=== PATIENT | male | born 1965 | race Caucasian/White ===

== ENCOUNTER 2016-11-19 18:16 | Emergency (ER) | payer OTHER ==
[~2016-11-19] VITALS: Ht 165.1 cm; Wt 68.2 kg
[2016-11-19 18:26] VITALS: Ht 165.1 cm; Wt 68.2 kg
--- NOTE | 2016-11-19 20:00 | RADRPT ---
PROCEDURE: XR Knee. CLINICAL INDICATION: Fall, pain TECHNIQUE: 3 views of the left knee are available for review. COMPARISON: None available FINDINGS: Osteopenia is noted. No acute fracture or dislocation is identified. There is no radiodense foreig n body. Alignment is anatomic. IMPRESSION: 1. Osteopenia. 2. No acute fracture or dislocation is seen. RPTAT: HDWR .Hiren Vanegas MD, MD Date Time Electronically viewed and signed by .Hiren Vanegas MD, on 11/19/2016 20:00 .R/
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
== END 2016-11-19 20:11 | disposition home or self-care (01) ==
LOC: FTE 18:16
DX: M25.562 Pain in left knee (principal); F17.210 Nicotine dependence, cigarettes, uncomplicated; Z04.3 Encounter for examination and observation following other accident
CPT/HCPCS: 73562

== ENCOUNTER 2017-01-29 14:29 | Inpatient (IN) | payer OTHER ==
[~2017-01-29] VITALS: Ht 165.1 cm; Wt 63.2 kg
[2017-01-29] MEDS ORDERED: SODIUM CHLORIDE 0.9% 1L BAG IV* STA (15:09)
[2017-01-29] MEDS ORDERED: PIPER-TAZO 3.375 GM IV (PMX) 100 ML IVPB STA (15:09)
[2017-01-29] MEDS ORDERED: OXYC80TA39 PO (15:17)
[2017-01-29] MEDS ORDERED: DULO60CA6 PO (15:17)
[2017-01-29] MEDS ORDERED: PREG300C PO (15:17)
[2017-01-29] MEDS ORDERED: CARB100T2 PO (15:18)
[2017-01-29] MEDS ORDERED: ACETAMINOPHEN 325 MG TAB PO ONE (15:30)
[2017-01-29 15:44] LABS: ABNORMAL IP MESSAGE 1; HEMATOCRIT 38.4 % (42.0-52.0); HEMOGLOBIN 13.1 g/dl (14.0-18.0); MEAN CORPUSCULAR HEMOGLOBIN 30.8 pg (29.0-33.0); MEAN CORPUSCULAR HGB CONC 34.1 g/dl (32.0-37.0); MEAN CORPUSCULAR VOLUME 90.4 fl (82.0-101.0); MEAN PLATELET VOLUME 9.6 fl (7.4-10.4); PLATELET COUNT 263 10^3/UL (140-415); RED BLOOD COUNT 4.25 10^6/ul (4.70-6.10); RED CELL DISTRIBUTION WIDTH 12.5 % (11.5-14.5); WHITE BLOOD COUNT 10.4 10^3/ul (4.8-10.8)
[2017-01-29 15:50] LABS: ADD SCAN DIFF NO
--- NOTE | 2017-01-29 15:53 | RADRPT ---
PROCEDURE: XR Chest. CLINICAL INDICATION: Chest pain TECHNIQUE: AP view of the chest was performed. COMPARISON: None FINDINGS: The cardiomediastinal silhouette is within normal limits. The lungs are clear. No signs of pleural f luid or pneumothorax are seen. The osseous structures and soft tissues are unremarkable. IMPRESSION: No evidence for active cardiopulmonary disease. RPTAT: QQ .Brina Castaneda MD, MD Date Time Electronically viewed and signed by .Brina Castaneda MD, on 01/29/2017 15:53 .F/
[2017-01-29 16:06] LABS: INR 1.02; PROTIME 13.4 Sec (12.2-14.2)
[2017-01-29 16:07] LABS: PARTIAL THROMBOPLASTIN TIME 32.9 Sec (25.0-35.0)
[2017-01-29 16:08] LABS: ALANINE AMINOTRANSFERASE 126 IU/L (13-69); ALKALINE PHOSPHATASE 180 IU/L (42-121); ANION GAP 11 (8-16); ASPARTATE AMINO TRANSFERASE 70 IU/L (15-46); BILIRUBIN,INDIRECT 0.3 mg/dl (0-1.1); BILIRUBIN,TOTAL 0.3 mg/dl (0.2-1.3); BLOOD UREA NITROGEN 8 mg/dl (7-20); CALCIUM 8.8 mg/dl (8.4-10.2); CARBON DIOXIDE 33 mmol/L (21-31); CHLORIDE 97 mmol/L (97-110); CREATININE 0.51 mg/dl (0.61-1.24); GLUCOSE 108 mg/dl (70-220); POTASSIUM 3.2 mmol/L (3.5-5.1); SODIUM 138 mmol/L (135-144)
[2017-01-29 16:09] LABS: ALBUMIN 4.6 g/dl (3.3-4.9); ALBUMIN/GLOBULIN RATIO 1.31; TOTAL PROTEIN 8.1 g/dl (6.1-8.1)
[2017-01-29 16:16] LABS: LYMPHOCYTES # 0.9 10^3/ul (0.8-2.9); NEUTROPHIL # 8.4 10^3/ul (1.6-7.5)
[2017-01-29 16:20] LABS: TROPONIN-I < 0.012 ng/ml (0.00-0.12)
[2017-01-29 16:31] LABS: ADD UMIC YES; UR ASCORBIC ACID NEGATIVE (NEGATIVE); UR BILIRUBIN (Dip) NEGATIVE (NEGATIVE); UR BLOOD (Dip) 2+ mg/dL (NEGATIVE); UR CLARITY SLIGHTLY CLOUDY (CLEAR); UR COLOR AMBER (YELLOW); UR GLUCOSE (Dip) 2+ mg/dL (NEGATIVE); UR KETONES (Dip) NEGATIVE (NEGATIVE); UR LEUKOCYTE ESTERASE (Dip) NEGATIVE Leu/ul (NEGATIVE); UR MUCUS MODERATE /HPF (NONE SEEN); UR NITRITE (Dip) NEGATIVE (NEGATIVE); UR RBC 22 /HPF (0-5); UR SPECIFIC GRAVITY (Dip) 1.023 (1.003-1.030); UR SQUAMOUS EPITHELIAL CELL FEW /HPF (FEW); UR TOTAL PROTEIN (Dip) NEGATIVE (NEGATIVE); UR UROBILINOGEN (Dip) NEGATIVE (NEGATIVE)
--- NOTE | 2017-01-29 16:31 | RADRPT ---
PROCEDURE: Right Upper Quadrant Ultrasound. CLINICAL INDICATION: abd pain and fever TECHNIQUE: Multiple real-time images were acquired of the patient's right upper quadrant abdomen a nd retroperitoneum utilizing a high resolution transducer. COMPARISON: None FINDINGS: The liver measures 16.4 cm, and demonstrates mildly increased echogenicity. The main portal vein is patent with proper directional flow. There is no intrahepatic biliary ductal dilatation. The extrahe patic common bile duct measures 10 mm. There is cholelithiasis as well as gallbladder wall thickening to 8 mm and pericholecystic fluid. S onographic Kelley's sign is present. The pancreas is not well visualized. The right kidney measures 11.6 cm and demonstrates normal echotexture. There is no right renal calcu candelario or hydronephrosis. The visualized abdominal aorta and IVC are grossly unremarkable. IMPRESSION: Cholelithiasis as well as gallbladder wall thickening, pericholecystic fluid, and a positive sonogra phic Kelley's sign consistent with acute cholecystitis. Furthermore, the common bile duct is dilate d to 10 mm which raises the possibility of choledocholithiasis. A HIDA scan or MRCP is recommended for further evaluation. Mild hepatomegaly with mild fatty infiltration. RPTAT: EE Physician Jason Date Time Electronically viewed and signed by Physician Jason on 01/29/2017 16:31 JAY
[2017-01-29] MEDS ORDERED: ONDANSETRON 4 MG INJ IV PRN ×2 (17:00→21:30)
[2017-01-29] MEDS ORDERED: ACETAMINOPHEN 325 MG TAB PO PRN ×2 (17:00→21:30)
[2017-01-29] MEDS ORDERED: morphine 4 MG/ML VIAL IV STA (17:40)
[2017-01-29] MEDS ORDERED: ONDANSETRON 4 MG INJ IV STA (17:40)
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
[2017-01-29 18:35] VITALS: BP 129/69; PULSE 68; RESP 16
[2017-01-29 19:19] VITALS: Ht 165.1 cm; Wt 63.2 kg
[2017-01-29 20:40] VITALS: BP 147/71; RESP 16
[2017-01-29] MEDS ORDERED: oxyCODONE (CR) 80 MG TAB [oxyCONTIN] PO PRN (21:00)
[2017-01-29] MEDS ORDERED: D5W-0.45 NACL + KCL 20 MEQ 1,000 ML IV SCH (21:06)
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
[2017-01-29] MEDS ORDERED: BISACODYL (EC) 5 MG TAB PO PRN (21:30)
[2017-01-29] MEDS ORDERED: BISACODYL 10 MG SUPP PR PRN (21:30)
[2017-01-29] MEDS ORDERED: MAGNESIUM HYDROXIDE 30ML CUP PO PRN (21:30)
[2017-01-29] MEDS ORDERED: NACL 0.9% 3 ML SYG IV SCH (21:30)
[2017-01-29] MEDS ORDERED: DOCUSATE SODIUM 100 MG CAP PO PRN (21:30)
[2017-01-29] MEDS ORDERED: NA PHOSPHATE/BIPHOS 133 ML ENEMA PR PRN (21:30)
[2017-01-29] MEDS ORDERED: ACETAMINOPHEN 650 MG SUPP PR PRN (21:30)
[2017-01-29] MEDS: DULOXETINE 30 MG CAP DR PO SCH (22:15)
[2017-01-29] MEDS: carBAMAZepine CHEW 100 MG CHEW PO SCH (22:16)
[2017-01-29] MEDS: oxyCODONE (CR) 40 MG TAB [oxyCONTIN] PO PRN (22:17)
[2017-01-29] MEDS: PREGABALIN 100 MG CAP PO SCH (22:18)
[2017-01-29] MEDS: CEFTRIAXONE 1 GM/50 ML (PMX) 50 ML IVPB SCH (22:23)
[2017-01-29] MEDS ORDERED: DEXTROSE 5%-0.9% NACL 1,000 ML IV SCH (22:30)
[2017-01-29] MEDS: ZOLPIDEM 5 MG TAB PO PRN (23:05)
[2017-01-29] MEDS: SENNA TAB PO PRN (23:05)
[2017-01-30] MEDS: morphine 2 MG INJ IV PRN ×3 (00:24→22:39)
[2017-01-30] MEDS: D5W-0.45 NACL + KCL 20 MEQ 1,000 ML IV SCH ×2 (02:18→16:32)
[2017-01-30 05:51] LABS: BASOPHILS % 0.3 % (0.0-2.0); EOSINOPHILS % 0.4 % (0.0-7.0); HEMOGLOBIN 10.7 g/dl (14.0-18.0); LYMPHOCYTES # 1.1 10^3/ul (0.8-2.9); LYMPHOCYTES % 12.4 % (15.0-51.0); MEAN CORPUSCULAR HEMOGLOBIN 30.4 pg (29.0-33.0); MEAN CORPUSCULAR HGB CONC 33.4 g/dl (32.0-37.0); MEAN CORPUSCULAR VOLUME 90.9 fl (82.0-101.0); MONOCYTE # 1.3 10^3/ul (0.3-0.9); NEUTROPHIL # 6.4 10^3/ul (1.6-7.5); NEUTROPHILS % 71.6 % (39.0-77.0); PLATELET COUNT 216 10^3/UL (140-415); RED BLOOD COUNT 3.52 10^6/ul (4.70-6.10); RED CELL DISTRIBUTION WIDTH 12.7 % (11.5-14.5); WHITE BLOOD COUNT 8.9 10^3/ul (4.8-10.8)
[2017-01-30 05:59] LABS: ALBUMIN 3.5 g/dl (3.3-4.9); ALBUMIN/GLOBULIN RATIO 1.2; BILIRUBIN,INDIRECT 0.3 mg/dl (0-1.1); BILIRUBIN,TOTAL 0.3 mg/dl (0.2-1.3); CALCIUM 8.5 mg/dl (8.4-10.2); CREATININE 0.34 mg/dl (0.61-1.24); POTASSIUM 3.4 mmol/L (3.5-5.1); TOTAL PROTEIN 6.4 g/dl (6.1-8.1)
[2017-01-30] MEDS: PANTOPRAZOLE 40 MG INJ IV SCH (06:15)
[2017-01-30 06:35] LABS: ADD SCAN DIFF NO
[2017-01-30] MEDS: oxyCODONE (CR) 40 MG TAB [oxyCONTIN] PO PRN ×2 (08:54→20:35)
[2017-01-30] MEDS: carBAMAZepine CHEW 100 MG CHEW PO SCH ×2 (08:54→20:37)
[2017-01-30] MEDS: DULOXETINE 30 MG CAP DR PO SCH ×2 (08:54→20:38)
[2017-01-30] MEDS: PREGABALIN 100 MG CAP PO SCH ×2 (08:55→20:37)
[2017-01-30 10:15] VITALS: BP 103/57; RESP 17
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
[2017-01-30] MEDS ORDERED: POTASSIUM CHLORIDE 30 MEQ in DEXTROSE 5% 250 ML IVPB ONE (16:30)
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
[2017-01-30 20:39] VITALS: BP 140/67; RESP 16
[2017-01-30] MEDS: CEFTRIAXONE 1 GM/50 ML (PMX) 50 ML IVPB SCH (20:42)
[2017-01-30] MEDS: SENNA TAB PO PRN (20:51)
--- NOTE | 2017-01-30 23:18 | RADRPT ---
PROCEDURE: Nuclear medicine HIDA scan CLINICAL INDICATION: Right upper quadrant pain. TECHNIQUE: 8 mCi of technetium-99m Mebrofenin was administered intravenously. Planar imaging of t he hepatic biliary system was performed. Delayed images were obtained. Images were reviewed on the high resolution PACS workstation. COMPARISON: CT of the abdomen and pelvis dated 01/29/2017 and abdominal ultrasound dated 7. FINDINGS: There is normal homogeneous uptake throughout the liver. Excretion into the intrahepatic bile ducts is seen at 10 minutes. The common bile duct is visible at 25 minutes, with excretion into the duod enum visualized at 30 minutes. The cystic duct and gallbladder are not visualized at this stage of t he examination. For hour delayed images demonstrate radiotracer uptake throughout the bowel. A focus of uptake seen in the right upper quadrant nonspecific, but might represent the gallbladder. IMPRESSION: 1. No intrahepatic or common bile duct obstruction. There is excretion of radiotracer into the duo denum at 30 minutes. 2. The cystic duct and gallbladder are not visualized during the initial portion of the examination , raising the possibility of cholecystitis. A focus of uptake seen in the right upper quadrant at 4 hours is nonspecific, but might represent delayed filling of the gallbladder. Further evaluation wi MRCP or ERCP may be useful. RPTAT: HTAR .Nacho Aguilar MD, MD Date Time Electronically viewed and signed by .Nacho Aguilar MD, on 01/30/2017 23:17 .R/
[2017-01-30] MEDS: ZOLPIDEM 5 MG TAB PO PRN (23:39)
[2017-01-31] VITALS (16 sets, daily range): BP systolic 130–163; BP diastolic 59–87; PULSE 56–76; RESP 16–37
[2017-01-31] MEDS: D5W-0.45 NACL + KCL 20 MEQ 1,000 ML IV SCH ×2 (04:40→18:17)
[2017-01-31] MEDS: PANTOPRAZOLE 40 MG INJ IV SCH (05:16)
[2017-01-31] MEDS: morphine 2 MG INJ IV PRN ×3 (05:17→16:23)
[2017-01-31 06:12] LABS: BASOPHILS % 0.6 % (0.0-2.0); EOSINOPHILS # 0.1 10^3/ul (0.0-0.5); EOSINOPHILS % 2.2 % (0.0-7.0); HEMATOCRIT 32.8 % (42.0-52.0); HEMOGLOBIN 10.9 g/dl (14.0-18.0); LYMPHOCYTES # 1.8 10^3/ul (0.8-2.9); LYMPHOCYTES % 27.6 % (15.0-51.0); MEAN CORPUSCULAR HEMOGLOBIN 30.4 pg (29.0-33.0); MEAN CORPUSCULAR HGB CONC 33.2 g/dl (32.0-37.0); MEAN CORPUSCULAR VOLUME 91.4 fl (82.0-101.0); MEAN PLATELET VOLUME 10.4 fl (7.4-10.4); MONOCYTE # 0.9 10^3/ul (0.3-0.9); MONOCYTES % 13.3 % (0.0-11.0); NEUTROPHIL # 3.6 10^3/ul (1.6-7.5); PLATELET COUNT 234 10^3/UL (140-415); RED BLOOD COUNT 3.59 10^6/ul (4.70-6.10); RED CELL DISTRIBUTION WIDTH 12.3 % (11.5-14.5); WHITE BLOOD COUNT 6.5 10^3/ul (4.8-10.8)
[2017-01-31] MEDS ORDERED: LIDOCAINE 1% (MDV) 20 ML INJ ONE (07:00)
[2017-01-31] MEDS ORDERED: ROCURONIUM 50 MG INJ ONE (07:00)
[2017-01-31] MEDS ORDERED: PROPOFOL 200 MG INJ ONE (07:00)
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
[2017-01-31 08:22] LABS: ALANINE AMINOTRANSFERASE 62 IU/L (13-69); ALBUMIN 3.6 g/dl (3.3-4.9); ALBUMIN/GLOBULIN RATIO 1.16; ALKALINE PHOSPHATASE 121 IU/L (42-121); AMYLASE 44 U/L (11-123); ANION GAP 17 (8-16); ASPARTATE AMINO TRANSFERASE 20 IU/L (15-46); BILIRUBIN,INDIRECT 0.1 mg/dl (0-1.1); BILIRUBIN,TOTAL 0.1 mg/dl (0.2-1.3); BLOOD UREA NITROGEN 5 mg/dl (7-20); CARBON DIOXIDE 27 mmol/L (21-31); CHLORIDE 99 mmol/L (97-110); CREATININE 0.39 mg/dl (0.61-1.24); GLUCOSE 84 mg/dl (70-220); POTASSIUM 3.9 mmol/L (3.5-5.1); SODIUM 139 mmol/L (135-144); TOTAL PROTEIN 6.7 g/dl (6.1-8.1)
[2017-01-31] MEDS: DULOXETINE 30 MG CAP DR PO SCH ×2 (09:00→20:32)
[2017-01-31] MEDS: PREGABALIN 100 MG CAP PO SCH ×3 (09:00→20:31)
[2017-01-31] MEDS: carBAMAZepine CHEW 100 MG CHEW PO SCH ×3 (09:00→20:32)
[2017-01-31] MEDS ORDERED: BUPIVACAINE 0.25% (STERILE-PAK) 30 ML INJ INJ ONE (12:05)
[2017-01-31] MEDS ORDERED: LIDOCAINE 1% (MPF) 30 ML INJ INJ ONE (12:05)
[2017-01-31] MEDS ORDERED: BUPIVACAINE 0.25%/EPI (SDV) 30 ML INJ ONE (12:08)
[2017-01-31] MEDS ORDERED: LIDOCAINE 1% (STERILE-PAK) 30 ML INJ ONE (12:08)
[2017-01-31] MEDS ORDERED: FENTAnyl 50 MCG/ML VIAL ONE ×2 (12:20→12:41)
[2017-01-31] MEDS ORDERED: PHENYLephrine (100 MCG/ML) 5ML SYG ONE ×2 (12:33→13:42)
[2017-01-31] MEDS ORDERED: MIDAZOLAM 1 MG/ML 2 ML INJ ONE (12:41)
[2017-01-31] MEDS ORDERED: LABETALOL HCL 20MG INJ ONE (12:50)
[2017-01-31] MEDS ORDERED: ONDANSETRON 4 MG INJ IV PRN (13:00)
[2017-01-31] MEDS ORDERED: PROCHLORPERAZINE 10 MG INJ IV PRN (13:00)
[2017-01-31] MEDS ORDERED: hydrALAzine 20 MG INJ IV PRN (13:00)
[2017-01-31] MEDS ORDERED: MEPERIDINE 25 MG INJ IV PRN (13:00)
[2017-01-31] MEDS ORDERED: LABETALOL HCL 20MG INJ IV PRN (13:00)
[2017-01-31] MEDS ORDERED: DIPHENHYDRAMINE 50 MG INJ IV PRN (13:00)
[2017-01-31] MEDS ORDERED: HYDROmorphONE (0.2 MG/ML) 10ML SYG IV PRN ×3 (13:00)
[2017-01-31] MEDS ORDERED: SUGAMMADEX SODIUM 200 MG/2 ML VIAL IV ONE (13:49)
--- NOTE | 2017-01-31 13:56 | OPR ---
Date/Time of Note Date/Time of Note DATE: 01/31/17 TIME: 13:44 Operative Report Procedure Date: Jan 31, 2017 Procedure Description Preoperative Diagnosis: Symptomatic cholelithiasis with acute cholecystitis Postoperative Diagnosis: Symptomatic cholelithiasis with acute cholecystitis Operation(s) Performed: 1. 3 port laparoscopic cholecystectomy 2. Laparoscopic guided bilateral transversus abdominis plane block 3. Local anesthetic [place], [id number] Surgeon: CARIE CAMERON MD Soda Maker: Tomeka Borges NP Anesthesia: general, local, & regional Anesthesiologist: Pankaj Obrien MD Estimated Blood Loss: 100 ml's Specimens: Gallbladder Tubes/Drains: 19f jennifer Complications: None Pt Condition Post Procedure: stable Disposition: PACU Indications: 51-year-old male with gallstones, cholecystitis, and abdominal pain here for cholecystectomy. Risks include but are not limited to bleeding, infection, abscess, seroma, damage to intestines, damage to the liver, damage to biliary tree, hernia formation, chronic pain, biloma, need for reoperations or further surgeries, [place] , stroke, PE, DVT, pneumonia, organ failures, or even . Procedure Description: Patient was brought and placed supine on the operating table SCDs were placed, preoperative antibiotics were administered, all pressure points were well-padded , and after induction of anesthesia patient was prepped and draped in usual sterile fashion and timeout was performed. Incision was made in the supraumbilical region, Veress was safely inserted, and after a negative SIP test , abdomen was insufflated to 15mmHg. Veress was removed and 5mm port was safely inserted. Laparoscopy was performed with a 5 mm 30 scope. No injuries were identified. The liver looks somewhat abnormal color. Gallbladder is distended and infected. 12 mm port is placed in subxiphoid under direct visualization followed by another 5 mm port in the right upper quadrant. All port sites were injected with quarter percent Marcaine with epi and 1% lidocaine prior to any incisions. Bilateral transversus abdominis plane block was performed under laparoscopic visualization to aid with pain control intra-and postoperatively. Patient was placed in reverse Trendelenburg and right side up on gallbladder was retracted superolaterally. The gallbladder was large and distended. Using electrocautery and blunt dissection I was able to identify the cystic artery and cystic duct. The duct tapered into the gallbladder. Full critical angle view was identified. Artery was clipped twice proximally and once distally and transected. There was a posterior branch that started bleeding and required further clips. The gallbladder was taken off the liver with electrocautery. Hemostasis was obtained. Gallbladder was placed in an Endo Catch bag and removed through the subxiphoid port site. This site has to be enlarged due to dilated thickened gallbladder with multiple stones within it.. There was complete hemostasis. 19F jennifer drain was placed through lateral incision to drain the liver and gb sites. 12 mm made port site fascia was closed with Endo Close of an 0 Vicryl in a [id number] manner x 2. Ports and CO2 were removed under direct visualization. Next complete hemostasis. Wounds were thoroughly irrigated skin was closed with brandt. Patient was extubated and transferred to recovery room in stable condition and all counts were correct and the end of the operation 2. CARIE CAMERON MD Jan 31, 2017 13:55
[2017-01-31] MEDS ORDERED: ACETAMINOPHEN 325 MG TAB PO PRN (14:00)
[2017-01-31] MEDS: oxyCODONE (CR) 40 MG TAB [oxyCONTIN] PO PRN (15:32)
[2017-01-31] MEDS ORDERED: morphine 2 MG INJ IV ONE (17:00)
[2017-01-31] MEDS: CEFTRIAXONE 1 GM/50 ML (PMX) 50 ML IVPB SCH (20:32)
[2017-01-31] MEDS: HYDROCODONE/APAP (5/325) TAB PO PRN (20:43)
[2017-01-31] MEDS: morphine 4 MG/ML VIAL IV PRN (22:30)
[2017-02-01] MEDS: ZOLPIDEM 5 MG TAB PO PRN (00:06)
[2017-02-01] MEDS: morphine 4 MG/ML VIAL IV PRN ×4 (01:33→12:17)
[2017-02-01] MEDS: oxyCODONE (CR) 40 MG TAB [oxyCONTIN] PO PRN ×2 (03:02→14:56)
[2017-02-01] MEDS: HYDROCODONE/APAP (5/325) TAB PO PRN (03:56)
[2017-02-01] MEDS: PANTOPRAZOLE (EC) 40 MG TAB PO SCH (05:01)
[2017-02-01 05:30] LABS: ADD SCAN DIFF NO
[2017-02-01 05:37] LABS: BASOPHILS % 0.2 % (0.0-2.0); EOSINOPHILS % 0.2 % (0.0-7.0); HEMATOCRIT 30.8 % (42.0-52.0); HEMOGLOBIN 10.3 g/dl (14.0-18.0); LYMPHOCYTES # 0.9 10^3/ul (0.8-2.9); LYMPHOCYTES % 13.9 % (15.0-51.0); MEAN CORPUSCULAR HEMOGLOBIN 29.9 pg (29.0-33.0); MEAN CORPUSCULAR HGB CONC 33.4 g/dl (32.0-37.0); MEAN CORPUSCULAR VOLUME 89.3 fl (82.0-101.0); MEAN PLATELET VOLUME 10.1 fl (7.4-10.4); MONOCYTE # 0.7 10^3/ul (0.3-0.9); MONOCYTES % 11.6 % (0.0-11.0); NEUTROPHIL # 4.7 10^3/ul (1.6-7.5); NEUTROPHILS % 73.8 % (39.0-77.0); PLATELET COUNT 247 10^3/UL (140-415); RED BLOOD COUNT 3.45 10^6/ul (4.70-6.10); RED CELL DISTRIBUTION WIDTH 12.2 % (11.5-14.5); WHITE BLOOD COUNT 6.4 10^3/ul (4.8-10.8)
[2017-02-01 06:22] LABS: ALBUMIN 3.5 g/dl (3.3-4.9); ALBUMIN/GLOBULIN RATIO 1.16; BILIRUBIN,INDIRECT 0.1 mg/dl (0-1.1); BILIRUBIN,TOTAL 0.1 mg/dl (0.2-1.3); CALCIUM 8.6 mg/dl (8.4-10.2); CREATININE 0.42 mg/dl (0.61-1.24); POTASSIUM 3.4 mmol/L (3.5-5.1); TOTAL PROTEIN 6.5 g/dl (6.1-8.1)
[2017-02-01 08:00] VITALS: BP 131/66; RESP 20
[2017-02-01] MEDS: DULOXETINE 30 MG CAP DR PO SCH ×2 (08:26→21:13)
[2017-02-01] MEDS: carBAMAZepine CHEW 100 MG CHEW PO SCH ×2 (08:27→21:14)
[2017-02-01] MEDS: PREGABALIN 100 MG CAP PO SCH ×2 (08:28→21:14)
[2017-02-01] MEDS: D5W-0.45 NACL + KCL 20 MEQ 1,000 ML IV SCH ×2 (08:31→20:40)
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
--- NOTE | 2017-02-01 12:22 | PDOCDIS ---
Discharge Instructions CONDITION Patient Condition: Good HOME CARE INSTRUCTIONS: Diet Instructions: Low Fat /CholesterolSpecial Diet: Clear Diet ACTIVITY: Activity Restrictions: Slowly Increase Activity FOLLOW UP/APPOINTMENTS Follow-up Plan vancomycin for leaST 2 WEEKS, SEE DR Elliott [facility] after d.c in 2 weeks SCHOOL/WORK RELEASE May return to School/Work with: No Restrictions KHANG SANFORD Feb 01, 2017 12:21
[2017-02-01] MEDS ORDERED: POTASSIUM CHLORIDE 250 ML IVPB ONE (12:30)
[2017-02-01] MEDS: traMADol 50 MG TAB PO PRN ×2 (13:18→21:14)
[2017-02-01 20:26] VITALS: BP 137/66; RESP 18
[2017-02-01] MEDS: CEFTRIAXONE 1 GM/50 ML (PMX) 50 ML IVPB SCH (21:13)
[2017-02-02] MEDS: morphine 4 MG/ML VIAL IV PRN ×4 (00:31→20:11)
[2017-02-02] MEDS: ZOLPIDEM 5 MG TAB PO PRN (00:33)
[2017-02-02] MEDS: oxyCODONE (CR) 40 MG TAB [oxyCONTIN] PO PRN ×2 (03:08→15:10)
[2017-02-02 05:10] LABS: ADD SCAN DIFF NO
[2017-02-02] MEDS: SENNA TAB PO PRN (05:16)
[2017-02-02] MEDS: PANTOPRAZOLE (EC) 40 MG TAB PO SCH (05:16)
[2017-02-02] MEDS: D5W-0.45 NACL + KCL 20 MEQ 1,000 ML IV SCH ×3 (05:17→23:20)
[2017-02-02 05:19] LABS: BASOPHILS % 0.7 % (0.0-2.0); EOSINOPHILS # 0.1 10^3/ul (0.0-0.5); EOSINOPHILS % 1.7 % (0.0-7.0); HEMOGLOBIN 10.4 g/dl (14.0-18.0); LYMPHOCYTES # 1.2 10^3/ul (0.8-2.9); LYMPHOCYTES % 19.9 % (15.0-51.0); MEAN CORPUSCULAR HEMOGLOBIN 29.3 pg (29.0-33.0); MEAN CORPUSCULAR HGB CONC 32.5 g/dl (32.0-37.0); MEAN CORPUSCULAR VOLUME 90.1 fl (82.0-101.0); MEAN PLATELET VOLUME 9.6 fl (7.4-10.4); MONOCYTE # 0.8 10^3/ul (0.3-0.9); NEUTROPHIL # 3.7 10^3/ul (1.6-7.5); NEUTROPHILS % 63.4 % (39.0-77.0); PLATELET COUNT 269 10^3/UL (140-415); RED BLOOD COUNT 3.55 10^6/ul (4.70-6.10); RED CELL DISTRIBUTION WIDTH 12.2 % (11.5-14.5); WHITE BLOOD COUNT 5.8 10^3/ul (4.8-10.8)
[2017-02-02 05:44] LABS: CALCIUM 8.7 mg/dl (8.4-10.2); CREATININE 0.4 mg/dl (0.61-1.24); POTASSIUM 3.8 mmol/L (3.5-5.1)
[2017-02-02 08:00] VITALS: BP 125/70; RESP 18
[2017-02-02] MEDS: DULOXETINE 30 MG CAP DR PO SCH ×2 (08:37→20:16)
[2017-02-02] MEDS: carBAMAZepine CHEW 100 MG CHEW PO SCH ×2 (08:38→20:16)
[2017-02-02] MEDS: PREGABALIN 100 MG CAP PO SCH ×2 (08:38→20:15)
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
[2017-02-02] MEDS: CEFTRIAXONE 1 GM/50 ML (PMX) 50 ML IVPB SCH (20:25)
[2017-02-02 20:30] VITALS: BP 119/69; RESP 18
[2017-02-03] MEDS: morphine 4 MG/ML VIAL IV PRN ×4 (01:29→14:00)
[2017-02-03] MEDS: oxyCODONE (CR) 40 MG TAB [oxyCONTIN] PO PRN ×2 (03:11→16:27)
[2017-02-03] MEDS: PANTOPRAZOLE (EC) 40 MG TAB PO SCH (05:51)
[2017-02-03 08:13] VITALS: BP 107/57; RESP 18
[2017-02-03] MEDS: carBAMAZepine CHEW 100 MG CHEW PO SCH (09:20)
[2017-02-03] MEDS: PREGABALIN 100 MG CAP PO SCH (09:20)
[2017-02-03] MEDS: DULOXETINE 30 MG CAP DR PO SCH (09:20)
[2017-02-03] MEDS: D5W-0.45 NACL + KCL 20 MEQ 1,000 ML IV SCH ×2 (10:11→12:40)
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
[2017-02-03 14:06] VITALS: BP 98/56; RESP 18
--- NOTE | 2017-02-03 16:14 | PDOCDIS ---
Discharge Instructions CONDITION Patient Condition: Stable HOME CARE INSTRUCTIONS: Diet Instructions: Low Fat /CholesterolSpecial Diet: Clear liquid ACTIVITY: Activity Restrictions: Slowly Increase Activity Bathing Restrictions: Tub Bath FOLLOW UP/APPOINTMENTS Follow-up Plan f/u own pcp [address] cosme davis 10 days SCHOOL/WORK RELEASE May return to School/Work with: No Restrictions NICOLÁS ROSENBAUM MD Feb 03, 2017 16:14
[2017-02-03] MEDS ORDERED: PANT40TA4 PO (16:18)
[2017-02-03] MEDS ORDERED: BISA5TAB6 PO (16:18)
[2017-02-03] MEDS ORDERED: DOCU-216 PO (16:18)
[2017-02-03] MEDS ORDERED: AMOX1TAB10 PO (16:18)
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
--- NOTE | 2017-02-03 16:54 | PDOCDIS ---
Discharge Instructions CONDITION Patient Condition: Stable HOME CARE INSTRUCTIONS: Diet Instructions: Low Fat /CholesterolSpecial Diet: Clear liquid ACTIVITY: Activity Restrictions: Slowly Increase Activity Bathing Restrictions: Tub Bath FOLLOW UP/APPOINTMENTS Follow-up Plan dc previous ind to see pcp [address] cosme davis 2 wks SCHOOL/WORK RELEASE May return to School/Work with: No Restrictions NICOLÁS ROSENBAUM MD Feb 03, 2017 16:54
[2017-02-03 19:48] VITALS: BP 100/55; PULSE 88; RESP 19
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
== END 2017-02-03 19:53 | disposition home or self-care (01) | DRG 418 ==
LOC: E/R 14:29 → PP2 16:58
PROVIDERS: ADMIT Internal Medicine Nephrology; ATTEND Internal Medicine Nephrology
PROC: 0FT44ZZ Resection of Gallbladder, Percutaneous Endoscopic Approach (ICD-10-PCS; principal; 2017-01-31 12:00)
DX: K80.00 Calculus of gallbladder with acute cholecystitis without obstruction (principal); G82.20 Paraplegia, unspecified; N39.0 Urinary tract infection, site not specified; K83.8 Other specified diseases of biliary tract; D64.9 Anemia, unspecified; F41.9 Anxiety disorder, unspecified; F32.9 Major depressive disorder, single episode, unspecified; F17.200 Nicotine dependence, unspecified, uncomplicated; R79.89 Other specified abnormal findings of blood chemistry; M79.606 Pain in leg, unspecified; E87.6 Hypokalemia; Z87.828 Personal history of other (healed) physical injury and trauma
CPT/HCPCS: 36415; 71010; 74176; 76705; 78226; 80048; 80053; 81001; 82150; 83605; 83690; 84484; 85025; 85610; 85730; 87040; 87086; 88304; 93005; 96374; 96375; A4310; A9537; C9113; J0696; J1170; J2250; J2270; J2370; J2405; J2543; J3010; J3480; J7030; J7042; J7070

== ENCOUNTER 2017-11-10 08:28 | Emergency (ER) | END 2017-11-10 11:39 | disposition home or self-care (01) ==